=== PATIENT | male | born 1950 | race Caucasian/White ===

== ENCOUNTER → 2020-02-09 | Outpatient (CLI) | payer MEDICARE, OTHER ==
[~2020-02-09] MED LIST: AMIODARONE HCL200 MG PO; IOPAMIDOL 370 MG/ML 200 ML INFUS..BTL INJ ONE; METOPROLOL SUCC50 MG PO; SODIUM CHLORIDE 0.9% 250ML 250 ML ONE; TYLENOL WITH C1 EACH PO; WARFARIN SODIUM3 MG PO
[2020-02-09 10:18] LABS: BLOOD UREA NITROGEN 16 mg/dL (7-26); BUN/CREATININE RATIO 15 (6-25); EST GLOMERULAR FILTRATION RATE > 60 ML/MIN (60-)
--- NOTE | 2020-02-10 12:40 | Diagnostic Imaging Report ---
EXAM: CT Abdomen and Pelvis WITHOUT and WITH contrast (CT UROGRAM) INDICATION: ^[id number] ^1039 ^GROSS HEMATURIA COMPARISON: None. TECHNIQUE: Abdomen was scanned utilizing a multidetector helical scanner before and after administration of IV contrast. Coronal and sagittal reformations were obtained. CT Urogram protocol was performed. IV CONTRAST: 150 mL of Isovue 370 ORAL CONTRAST: Water COMPLICATIONS: None RADIATION DOSE: Total ^[id number] ^1039 ^GROSS HEMATURIA Estimated effective dose: (DLP x 0.015 x size factor) mSv CTDIvol has been reviewed. It is below the limits set by the Radiation Protocol Committee (RPC). FINDINGS: LINES and TUBES: None. LOWER THORAX: Bibasilar dependent atelectasis HEPATOBILIARY: No focal hepatic lesions. No biliary ductal dilation. GALLBLADDER: There are cholecystectomy clips. SPLEEN: No splenomegaly. PANCREAS: No focal masses or ductal dilatation. ADRENALS: 1.5 cm low-density left adrenal nodule consistent with a lipid rich adenoma. KIDNEYS/URETERS: Kidneys enhance symmetrically. No hydronephrosis. No cystic or solid mass lesions. No stones. GI TRACT: No abnormal distention, wall thickening, or evidence of bowel obstruction. There are diverticula within the colon without evidence of diverticulitis. Appendix is normal. PELVIC ORGANS/BLADDER: Prostate is enlarged measuring 6.2 x 4.5 x 5.8 cm for an estimated volume of 84 cc. Urinary bladder is incompletely distended which limits evaluation. There is mild diffuse urinary bladder wall thickening. No filling defects on the postcontrast images within the urinary bladder. LYMPH NODES: No lymphadenopathy. VESSELS: There is mild atherosclerotic disease in the aorta and major arterial branches. PERITONEUM / RETROPERITONEUM: No free air or fluid. BONES: There are degenerative changes in the lumbar spine. SOFT TISSUES: Unremarkable. IMPRESSION: 1. No suspicious renal or collecting system lesion. No urolithiasis or hydronephrosis. 2. Prostatomegaly. 3. Nonspecific urinary bladder wall thickening similar to hypertrophy from chronic bladder outlet obstruction from enlarged prostate. 4. Colonic diverticulosis without CT evidence of acute diverticulitis. 5. Left adrenal adenoma Signed by: Pierre Cuello MD on 02/10/2020 12:37 PM
== END ==
LOC: CT 09:30
PROVIDERS: ATTEND Urology
DX: R31.0 Gross hematuria (principal)
CPT/HCPCS: 36415; 74178; 82565; 84520; J7050; Q9967